=== PATIENT | female | born 1965 | race Caucasian/White ===

== ENCOUNTER 2019-11-08 07:32 | Outpatient (CLI) | payer OTHER, SELFPAY ==
--- NOTE | ~2019-11-08 | US_ITS ---
EXAMINATION: US carotid duplex BI DATE: 11/08/2019 08:41 INDICATION: Carotid stenosis. TECHNIQUE: Grayscale, color Doppler, and pulsed Doppler images of the cervical carotid arteries were obtained. The degree of vessel stenosis is placed in one of the following categories: normal, <50%, 5 0-69%, >=70% but less than near-occlusion, near-occlusion, or total occlusion. Note that percent sten osis relative to normal distal artery lumen diameter is indirectly measured from velocity measurement s as described by Hunter, et al. Radiology 2003; 229:340-346. COMPARISON: Ultrasound 07/22/2016 FINDINGS: RIGHT: The right common carotid artery (CCA) peak systolic velocity (PSV) is 64 cm/s. The right internal car otid artery (ICA) PSV is 91 cm/s. The right ICA end-diastolic velocity (EDV) is 27 cm/s. The right IC A/CCA PSV ratio is 1.4. Grayscale and color Doppler images yield an estimate of <50% diameter reducti on from plaque in the ICA. There is antegrade flow in the right vertebral artery. LEFT: The left CCA PSV is 71 cm/s. The left ICA PSV is 116 cm/s. The left ICA EDV is 37 cm/s. The left ICA/ CCA PSV ratio is 1.6. Grayscale and color Doppler images yield an estimate of <50% diameter reduction from plaque in the ICA. There is antegrade flow in the left vertebral artery. IMPRESSION: 1. <50% stenosis in the right internal carotid artery. 2. <50% stenosis in the left internal carotid artery. Reviewed, dictated and finalized at location A.
[2019-11-08 07:43] LABS: Basophils Absolute Auto 0.05 K/mm3 (0.00-0.10); Basophils Percent Auto 0.7 % (0.0-1.0); Eosinophils Absolute Auto 0.17 K/mm3 (0.02-0.50); Eosinophils Percent Auto 2.3 % (1.0-6.0); Hematocrit 41.9 % (35.0-49.0); Hemoglobin 13.9 g/dL (12.0-15.0); Immature Granulocyte Absolute 0.03 K/mm3 (0.00-0.00); Immature Granulocyte Percent A 0.4 % (0.0-0.0); Lymphocytes Percent Auto 47.8 % (18.0-42.0); Mean Corpuscular HGB Conc 33.2 g/dL (32.0-36.0); Mean Corpuscular Hemoglobin 30.6 pg (27.0-31.0); Mean Corpuscular Volume 92.3 fL (78.0-102.0); Mean Platelet Volume 9.6 fl (9.2-11.8); Monocytes Percent Auto 6.6 % (2.0-11.0); Neutrophils Absolute Auto 3.2 K/mm3 (1.7-7.2); Neutrophils Percent Auto 42.2 % (50.0-70.0); Platelet Count Result 197 K/mm3 (150-420); Red Blood Count 4.54 M/mm3 (4.20-5.40); Red Cell Distribution Width 13.8 % (11.6-14.4); White Blood Count 7.5 K/mm3 (4.8-10.8)
[2019-11-08 07:50] LABS: Add Urine Microscopic? YES; Appearance Urine Clear (Clear); Bilirubin Urine Negative (Negative); Blood Urine Negative (Negative); Color Urine Yellow (Yellow); Glucose Urine UA Negative (Negative); Ketones Urine Negative (Negative); Leukocyte Esterase Ur Trace LEU/UL (Negative); Nitrate Urine Negative (Negative); Protein Urine Negative (Negative); Urobilinogen Urine 0.2 mg/dL (0.2-1.0)
[2019-11-08 07:59] LABS: Hemoglobin A1C 5.6 % (<5.7)
[2019-11-08 08:01] LABS: Creatinine Urine 109.17 mg/dL (40-278); MALB Creatinine Ratio 3.3 mg/g (0-30); Microalbumin Urine Random 3.7 mg/L
[2019-11-08 08:09] LABS: Bacteria Urine 2+ /hpf; Mucus Urine Few /lpf; RBC Urine 0-2 /hpf (0-2); Squamous Epithelial Cell Urine Few /hpf (Few)
[2019-11-08 08:53] LABS: Alanine Aminotransferase 37 U/L (14-59); Albumin Level 3.6 g/dL (3.4-5.0); Alkaline Phosphatase 96 U/L (46-116); Anion Gap 11.9 mmol/L (7-16); Aspartate Amino Transferase 20 U/L (15-37); Bilirubin,Total 0.3 mg/dL (0.00-1.00); Blood Urea Nitrogen 10 mg/dL (7-18); Calcium 8.8 mg/dL (8.5-10.1); Carbon Dioxide 28 mmol/L (21-32); Chloride 105 mmol/L (98-108); Cholesterol 155 mg/dL (0-200); Creatine Kinase 70 U/L (26-192); Estimated Glomerular Filt Rate > 60; Glucose 104 mg/dL (70-99); HDL Direct 31 mg/dL (40-60); LDL Cholesterol Calculated 79 mg/dL (<130); Osmolality Calculated 291 mOsm/kg (285-295); Potassium 3.9 mmol/L (3.5-5.1); Sodium 141 mmol/L (136-145); Total Protein 6.9 g/dL (6.4-8.2); Triglycerides 227 mg/dL (0-150)
== END 2019-11-08 07:33 | disposition home or self-care (01) ==
PROVIDERS: PCP Internal Medicine; Visit Provider Internal Medicine
DX: I65.29 Occlusion and stenosis of unspecified carotid artery (principal); E78.2 Mixed hyperlipidemia; R73.01 Impaired fasting glucose
CPT/HCPCS: 36415; 80053; 80061; 81001; 82043; 82550; 83036; 85025; 93880

== ENCOUNTER 2020-05-01 12:30 | Outpatient (CLI) | payer OTHER, SELFPAY ==
--- NOTE | ~2020-05-01 | XR_ITS ---
EXAMINATION: XR chest 2V DATE: 05/01/2020 13:19 INDICATION: Cough and fever. TECHNIQUE: Frontal and lateral views of the chest were obtained. COMPARISON: Chest 2 views 01/13/2016, chest CT 11/21/2018 FINDINGS: There are lucencies in the upper lungs, consistent with emphysema. No pleural effusion or p neumothorax. The heart size is normal. IMPRESSION: 1. Emphysema. Reviewed, dictated and finalized at location B. AL SITTER IMPRESSION: 1. Emphysema.
[2020-05-01 13:12] LABS: Basophils Absolute Auto 0.06 K/mm3 (0.00-0.10); Basophils Percent Auto 0.6 % (0.0-1.0); Eosinophils Absolute Auto 0.14 K/mm3 (0.02-0.50); Eosinophils Percent Auto 1.5 % (1.0-6.0); Hematocrit 43.7 % (35.0-49.0); Immature Granulocyte Absolute 0.04 K/mm3 (0.00-0.00); Immature Granulocyte Percent A 0.4 % (0.0-0.0); Lymphocytes Absolute Auto 2.69 K/mm3 (1.10-4.50); Lymphocytes Percent Auto 28.7 % (18.0-42.0); Mean Corpuscular Hemoglobin 29.9 pg (27.0-31.0); Mean Corpuscular Volume 93.2 fL (78.0-102.0); Mean Platelet Volume 9.5 fl (9.2-11.8); Monocytes Absolute Auto 0.66 K/mm3 (0.10-0.90); Neutrophils Absolute Auto 5.8 K/mm3 (1.7-7.2); Neutrophils Percent Auto 61.8 % (50.0-70.0); Platelet Count Result 213 K/mm3 (150-420); Red Blood Count 4.69 M/mm3 (4.20-5.40); Red Cell Distribution Width 13.3 % (11.6-14.4); White Blood Count 9.4 K/mm3 (4.8-10.8)
[2020-05-01 13:30] LABS: Influenza Control Valid (Valid)
[2020-05-01 13:31] LABS: SARS-CoV-2 Ag Negative (Negative)
== END 2020-05-01 12:31 | disposition home or self-care (01) ==
PROVIDERS: PCP Internal Medicine; Visit Provider Internal Medicine
DX: R05 Cough (principal); R50.9 Fever, unspecified; Z20.828 Contact with and (suspected) exposure to other viral communicable diseases
CPT/HCPCS: 71046; 85025; 87426; 87804

== ENCOUNTER 2021-02-05 16:55 | Outpatient (CLI) | payer OTHER, SELFPAY ==
[2021-02-05 18:15] LABS: SARS-CoV-2 RNA PCR Negative (Negative)
== END 2021-02-05 16:56 | disposition home or self-care (01) ==
PROVIDERS: PCP Internal Medicine; Visit Provider Internal Medicine
DX: Z20.822 Contact with and (suspected) exposure to COVID-19 (principal)
CPT/HCPCS: C9803; U0003; U0005

== ENCOUNTER 2021-03-31 11:35 | Outpatient (CLI) | payer OTHER, SELFPAY ==
[2021-03-31 11:48] LABS: Basophils Absolute Auto 0.04 K/mm3 (0.00-0.10); Basophils Percent Auto 0.5 % (0.0-1.0); Eosinophils Absolute Auto 0.16 K/mm3 (0.02-0.50); Hematocrit 42.8 % (35.0-49.0); Hemoglobin 14.2 g/dL (12.0-15.0); Immature Granulocyte Absolute 0.02 K/mm3 (0.00-0.00); Immature Granulocyte Percent A 0.2 % (0.0-0.0); Lymphocytes Absolute Auto 3.37 K/mm3 (1.10-4.50); Mean Corpuscular HGB Conc 33.2 g/dL (32.0-36.0); Mean Corpuscular Hemoglobin 30.5 pg (27.0-31.0); Mean Corpuscular Volume 91.8 fL (78.0-102.0); Mean Platelet Volume 9.8 fl (9.2-11.8); Monocytes Absolute Auto 0.52 K/mm3 (0.10-0.90); Monocytes Percent Auto 6.5 % (2.0-11.0); Neutrophils Absolute Auto 3.9 K/mm3 (1.7-7.2); Neutrophils Percent Auto 48.8 % (50.0-70.0); Platelet Count Result 238 K/mm3 (150-420); Red Blood Count 4.66 M/mm3 (4.20-5.40); Red Cell Distribution Width 14.1 % (11.6-14.4)
[2021-03-31 11:54] LABS: Add Urine Microscopic? NO; Appearance Urine Clear (Clear); Bilirubin Urine Negative (Negative); Blood Urine Negative (Negative); Color Urine Light Yellow (Yellow); Glucose Urine UA Negative (Negative); Ketones Urine Negative (Negative); Leukocyte Esterase Ur Negative (Negative); Nitrate Urine Negative (Negative); Protein Urine Negative (Negative); Specific Grav Ur 1.025 (1.010-1.020); Urobilinogen Urine 0.2 mg/dL (0.2-1.0)
[2021-03-31 12:05] LABS: Creatinine Urine 171.06 mg/dL (40-278); MALB Creatinine Ratio 7.5 mg/g (0-30); Microalbumin Urine Random < 13.0 mg/L
[2021-03-31 12:07] LABS: Hemoglobin A1C 5.5 % (<5.7)
[2021-03-31 12:57] LABS: Alanine Aminotransferase 29 U/L (14-59); Albumin Level 3.8 g/dL (3.4-5.0); Alkaline Phosphatase 106 U/L (46-116); Anion Gap 9 mmol/L (8-16); Aspartate Amino Transferase 13 U/L (15-37); Bilirubin,Total 0.4 mg/dL (0.00-1.00); Blood Urea Nitrogen 7 mg/dL (7-18); Calcium 9.2 mg/dL (8.5-10.1); Carbon Dioxide 27 mmol/L (21-32); Chloride 107 mmol/L (98-108); Cholesterol 152 mg/dL (0-200); Creatine Kinase 63 U/L (26-192); Estimated Glomerular Filt Rate > 60; Glucose 88 mg/dL (70-99); HDL Direct 30 mg/dL (40-60); LDL Cholesterol Calculated 86 mg/dL (<130); Osmolality Calculated 293 mOsm/kg (285-295); Potassium 3.9 mmol/L (3.5-5.1); Sodium 143 mmol/L (136-145); Total Protein 7.1 g/dL (6.4-8.2); Triglycerides 179 mg/dL (0-150)
== END 2021-03-31 11:36 | disposition home or self-care (01) ==
LOC: CHSLAB 11:37
PROVIDERS: PCP Internal Medicine; Visit Provider Internal Medicine
DX: E78.5 Hyperlipidemia, unspecified (principal); R73.01 Impaired fasting glucose; D72.820 Lymphocytosis (symptomatic)
CPT/HCPCS: 36415; 80053; 80061; 81003; 82043; 82550; 83036; 85025

== ENCOUNTER 2021-05-08 10:19 | Outpatient (CLI) | payer OTHER, SELFPAY ==
[2021-05-08 11:26] LABS: Influenza A QL RT-PCR Negative (Negative); Influenza B QL RT-PCR Negative (Negative); SARS-CoV-2 RNA PCR Positive (Negative)
== END 2021-05-08 10:20 | disposition home or self-care (01) ==
LOC: CHSLAB 10:22
PROVIDERS: PCP Internal Medicine; Visit Provider Internal Medicine
DX: U07.1 COVID-19 (principal); J06.9 Acute upper respiratory infection, unspecified
CPT/HCPCS: 87502; C9803; U0003; U0005

== ENCOUNTER 2021-05-09 12:33 | Outpatient (CLI) | payer OTHER, SELFPAY ==
--- NOTE | 2021-05-09 12:45 | PC.NURSE ---
Here for covid infusion, denies needs, warm blanket given, to room 201
[2021-05-09 12:50] VITALS: BP 145/65; PULSE 85; RESP 18; TEMP 37.3; O2SAT 94
[2021-05-09] MEDS: diphenhydrAMINE HCl CAP 25 MG CAPSULE PO (12:51)
[2021-05-09] MEDS: ACETAMINOPHEN 325 MG TABLET 650 MG PO (12:51)
[2021-05-09] MEDS: FAMOTIDINE 20 MG TABLET PO (12:51)
--- NOTE | 2021-05-09 14:03 | PC.NURSE ---
tolerated infusion well, slight nausea noted, no emesis
[2021-05-09 14:08] VITALS: BP 122/61; PULSE 75; RESP 18; TEMP 37.3; O2SAT 92
--- NOTE | 2021-05-09 14:21 | PC.NURSE ---
discharge via wheel chair to home, denies needs, saline lock removed with cathlon itact
== END 2021-05-09 12:34 | disposition home or self-care (01) ==
PROVIDERS: PCP Internal Medicine; Visit Provider Internal Medicine
DX: U07.1 COVID-19 (principal)
CPT/HCPCS: 96365; A9270; M0245; Q0245

== ENCOUNTER 2021-05-30 10:47 | Outpatient (CLI) | payer OTHER, SELFPAY ==
[2021-05-30 12:17] LABS: Influenza Control Valid (Valid)
[2021-05-30 12:18] LABS: SARS-CoV-2 Ag Negative (Negative)
== END 2021-05-30 10:48 | disposition home or self-care (01) ==
LOC: CHSLAB 10:49
PROVIDERS: PCP Internal Medicine; Visit Provider Internal Medicine
DX: J06.9 Acute upper respiratory infection, unspecified (principal); Z20.822 Contact with and (suspected) exposure to COVID-19
CPT/HCPCS: 87081; 87426; 87804; 87880; C9803

== ENCOUNTER 2021-11-19 09:39 | Outpatient (CLI) | payer OTHER, SELFPAY ==
[2021-11-19 09:58] LABS: Basophils Absolute Auto 0.06 K/mm3 (0.00-0.10); Basophils Percent Auto 0.7 % (0.0-1.0); Eosinophils Absolute Auto 0.15 K/mm3 (0.02-0.50); Eosinophils Percent Auto 1.7 % (1.0-6.0); Hematocrit 41.3 % (35.0-49.0); Hemoglobin 13.5 g/dL (12.0-15.0); Immature Granulocyte Absolute 0.03 K/mm3 (0.00-0.00); Immature Granulocyte Percent A 0.3 % (0.0-0.0); Lymphocytes Absolute Auto 3.09 K/mm3 (1.10-4.50); Lymphocytes Percent Auto 34.3 % (18.0-42.0); Mean Corpuscular HGB Conc 32.7 g/dL (32.0-36.0); Mean Corpuscular Hemoglobin 29.9 pg (27.0-31.0); Mean Corpuscular Volume 91.6 fL (78.0-102.0); Mean Platelet Volume 9.7 fl (9.2-11.8); Monocytes Absolute Auto 0.56 K/mm3 (0.10-0.90); Monocytes Percent Auto 6.2 % (2.0-11.0); Neutrophils Absolute Auto 5.1 K/mm3 (1.7-7.2); Neutrophils Percent Auto 56.8 % (50.0-70.0); Platelet Count Result 208 K/mm3 (150-420); Red Blood Count 4.51 M/mm3 (4.20-5.40); Red Cell Distribution Width 14.1 % (11.6-14.4)
[2021-11-19 10:02] LABS: Add Urine Microscopic? NO; Appearance Urine Clear (Clear); Bilirubin Urine Negative (Negative); Blood Urine Negative (Negative); Color Urine Yellow (Yellow); Glucose Urine UA Negative (Negative); Ketones Urine Negative (Negative); Leukocyte Esterase Ur Negative LEU/UL (Negative); Nitrate Urine Negative (Negative); Protein Urine Negative (Negative); Specific Grav Ur 1.025 (1.010-1.020); Urobilinogen Urine 0.2 mg/dL (0.2-1.0)
[2021-11-19 10:08] LABS: Creatinine Urine 129.23 mg/dL (40-278); Microalbumin Urine Random < 13.0 mg/L
[2021-11-19 10:10] LABS: Hemoglobin A1C 5.6 % (<5.7)
[2021-11-19 10:42] LABS: Alanine Aminotransferase 22 U/L (14-59); Albumin Level 3.6 g/dL (3.4-5.0); Alkaline Phosphatase 123 U/L (46-116); Anion Gap 8 mmol/L (8-16); Aspartate Amino Transferase 15 U/L (15-37); Bilirubin,Total 0.2 mg/dL (0.00-1.00); Blood Urea Nitrogen 13 mg/dL (7-18); Calcium 8.9 mg/dL (8.5-10.1); Carbon Dioxide 26 mmol/L (21-32); Chloride 107 mmol/L (98-108); Cholesterol 142 mg/dL (0-200); Creatine Kinase 57 U/L (26-192); Estimated Glomerular Filt Rate > 60; Glucose 98 mg/dL (70-99); HDL Direct 35 mg/dL (40-60); LDL Cholesterol Calculated 62 mg/dL (<130); Osmolality Calculated 292 mOsm/kg (285-295); Potassium 3.9 mmol/L (3.5-5.1); Sodium 141 mmol/L (136-145); Total Protein 7.4 g/dL (6.4-8.2); Triglycerides 227 mg/dL (0-150)
== END 2021-11-19 09:40 | disposition home or self-care (01) ==
LOC: CHSLAB 09:41
PROVIDERS: PCP Internal Medicine; Visit Provider Internal Medicine
DX: E78.5 Hyperlipidemia, unspecified (principal); R73.01 Impaired fasting glucose; I10 Essential (primary) hypertension
CPT/HCPCS: 36415; 80053; 80061; 81003; 82043; 82550; 83036; 85025

== ENCOUNTER 2021-12-15 07:19 | Outpatient (CLI) | payer OTHER, SELFPAY ==
--- NOTE | ~2021-12-15 | CT_ITS ---
EXAMINATION: CT lung screening DATE: 12/15/2021 07:42 INDICATION: History of tobacco dependence TECHNIQUE: Computed tomography (CT) of the chest was performed without intravenous contrast. The dose -length product was 103.96 mGy-cm. Automated exposure control and iterative reconstruction technique were employed. COMPARISON: CT dated 11/21/2018 FINDINGS: Heart size is normal. No significant pleural or pericardial effusion. There is emphysema. M ild mediastinal lymph node enlargement, likely reactive. There is atherosclerosis. Stable right lower lobe nodule measuring 11 x 8 mm compared with 11 x 9 mm on prior examination. There is adjacent grou ndglass opacification and endobronchial thickening. There are small 2-3 mm nodules in the upper lobes without significant change. There is a subsolid 5 mm left perifissural nodule, image 85, likely yuval gn. No pneumothorax. No endobronchial lesions. IMPRESSION: 1. Lung-RADS category 3: Probably benign. Further evaluation is recommended with noncontrast low-dose chest CT in 6 months. Reviewed, dictated and finalized at location A. IMPRESSION: 1. Lung-RADS category 3: Probably benign. Further evaluation is recommended wit h noncontrast low-dose chest CT in 6 months.
== END 2021-12-15 07:20 | disposition home or self-care (01) ==
LOC: CHSIMG 07:20
PROVIDERS: PCP Internal Medicine; Visit Provider Internal Medicine
DX: Z12.2 Encounter for screening for malignant neoplasm of respiratory organs (principal); Z87.891 Personal history of nicotine dependence
CPT/HCPCS: 71271

== ENCOUNTER 2022-04-14 18:37 | Emergency (ER) | payer OTHER, SELFPAY ==
[2022-04-14] VITALS (10 sets, daily range): BP systolic 114–126; BP diastolic 55–73; PULSE 64–87; RESP 13–21; TEMP 36.6–36.7; O2SAT 94–99
--- NOTE | ~2022-04-14 | XR_ITS ---
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 RESULT: Lines, tubes, and devices: None. Lungs and pleura: Clear. Cardiomediastinal silhouette: Stable. Other: No acute osseous or upper abdominal finding. IMPRESSION: No acute cardiopulmonary process. Reviewed, dictated and finalized at location K. ICAL LABORATORY SERVICE TEACHER
--- NOTE | 2022-04-14 19:03 | ECG_ITS ---
Measurements Intervals [place] Rate: 67 P: 57 UT: 164 QRS: 29 QRSD: 86 T: 56 QT: 391 QTc: 414 Interpretive Statements SINUS RHYTHM BASELINE ARTIFACT- V3-V4 NORMAL ECG NO PREVIOUS ECG AVAILABLE FOR COMPARISON Electronically Signed On 04-15-2022 9:12:57 RECONDITIONER by Fritz Mart D.O.
--- NOTE | 2022-04-14 19:04 | ED.CHESTPAIN ---
HPI - Chest Pain General Chief Complaint: Chest Pain Stated Complaint: trouble breathing, chest pain, fever Time Seen by Provider: 04/14/22 18:58 History of Present Illness HPI narrative: Pt presents with chest pain times tow over the last two days. Pt states she had an episode today that lasted 5 minutes and radiated into her right jaw. Pt used nitro x2 and it resolved. Pt has no pain now. Pt has hx of CAD with stents, smoker. Pt is treated by [facility] at [facility] in [place]. Related Data Allergies Allergy/AdvReac Type Severity Reaction Status Date / Time No Known Drug Allergies Allergy Mild Other Verified 04/14/22 19:34 Review of Systems Review of Systems: All systems reviewed & are unremarkable except as noted in HPI and below Exam Const: General: no acute distress Nutritional Appearance: well nourished Orientation/consciousness: patient oriented x3 Limitations: no limitations Eyes: EOM: EOMs intact bilaterally Neck: Neck: normal visual inspection and no lymphadenopathy Chest: Chest palpation & inspection: normal inspection of the chest Resp: Effort & Inspection: normal respiratory effort Auscultation: clear to auscultation bilaterally Cardio: Rate: regular rate Rhythm: regular rhythm GI: GI Palp: Yes Soft to palpation Auscultation: normal bowel sounds Skin: General skin exam: normal color Rashes: no rashes Wounds: no wounds Neuro: General: patient oriented x3, moves all extremities, no meningeal signs, no focal motor deficits and CN's II-XI intact bilaterally Speech: normal speech Extrem: General: normal to inspection, no clubbing, cyanosis or edema and no pedal edema Psych: Mental Status: mental status grossly normal Affect: normal affect Attitude: cooperative Course Course Emergency Course: d/w dr basurto at [facility] will accept pt. asked to give lovenox 1mg/kg, will call when bed opens up. Vital Signs Vital signs: Vital Signs Temperature 98.0 F 04/14/22 18:50 Pulse Rate 68 04/14/22 18:50 Respiratory Rate 20 04/14/22 18:50 Blood Pressure 116/72 04/14/22 18:50 Pulse Oximetry 97 04/14/22 18:50 Oxygen Delivery Room Air 04/14/22 18:50 Temperature 98 F 04/14/22 19:05 Pulse Rate 68 04/14/22 19:05 Respiratory Rate 20 04/14/22 19:05 Blood Pressure 116/72 04/14/22 19:05 Pulse Oximetry 97 04/14/22 19:05 Oxygen Delivery Room Air 04/14/22 19:05 MDM - Chest Pain Lab Data Result diagrams: 04/14/22 19:15 04/14/22 19:15 Labs: Lab Results 04/14/22 04/14/22 04/14/22 Range/Units 19:15 19:15 19:15 WBC 7.6 (4.8-10.8) K/mm3 RBC 4.54 (4.20-5.40) M/mm3 Hgb 13.7 (12.0-15.0) g/dL Hct 41.8 (35.0-49.0) % MCV 92.1 (78.0-102.0) fL MCH 30.2 (27.0-31.0) pg MCHC 32.8 (32.0-36.0) g/dL RDW 14.2 (11.6-14.4) % Plt Count 208 (150-420) K/mm3 MPV 9.9 (9.2-11.8) fl Immature Gran % (Auto) 0.3 H (0.0-0.0) % Neut % (Auto) 37.2 L (50.0-70.0) % Lymph % (Auto) 53.7 H (18.0-42.0) % Marin % (Auto) 6.3 (2.0-11.0) % Eos % (Auto) 1.7 (1.0-6.0) % Baso % (Auto) 0.8 (0.0-1.0) % Lymph # (Auto) 4.09 (1.10-4.50) K/mm3 Marin # (Auto) 0.48 (0.10-0.90) K/mm3 Eos # (Auto) 0.13 (0.02-0.50) K/mm3 Baso # (Auto) 0.06 (0.00-0.10) K/mm3 Abs Immat Gran (auto) 0.02 H (0.00-0.00) K/mm3 Absolute Neuts (auto) 2.8 (1.7-7.2) K/mm3 Absolute Nucleated RBC 0.00 (0.00-0.00) K/mm3 Nucleated RBC % 0.0 (0-0.0) % PT 10.4 (9.50-12.10) Seconds INR 0.9 APTT 28.7 (23.90-30.70) SEC Sodium 143 (136-145) mmol/L Potassium 3.9 (3.5-5.1) mmol/L Chloride 107 (98-108) mmol/L Carbon Dioxide 27 (21-32) mmol/L Anion Gap 9 (8-16) mmol/L BUN 6 L (7-18) mg/dL Creatinine 0.66 (0.55-1.02) mg/dL Estim Creat Clear Calc 85 ml/min Estimated GFR > 60 (59 - ) Glucose 97 (70-99) mg/dL Calculated Osmolalit
--- NOTE | 2022-04-14 19:15 | PC.NURSE ---
Reported current pt chest pain level is 0. ERP states he still wants the 1 of Nitro paste but hold any other orders at this time. RN confirms and applies only 1 nitro paste.
[2022-04-14] MEDS: ASPIRIN 81 MG CHEWABLE TABLET 324 MG PO (19:18)
[2022-04-14 19:19] LABS: Basophils Absolute Auto 0.06 K/mm3 (0.00-0.10); Basophils Percent Auto 0.8 % (0.0-1.0); Eosinophils Absolute Auto 0.13 K/mm3 (0.02-0.50); Eosinophils Percent Auto 1.7 % (1.0-6.0); Hematocrit 41.8 % (35.0-49.0); Hemoglobin 13.7 g/dL (12.0-15.0); Immature Granulocyte Absolute 0.02 K/mm3 (0.00-0.00); Immature Granulocyte Percent A 0.3 % (0.0-0.0); Lymphocytes Absolute Auto 4.09 K/mm3 (1.10-4.50); Lymphocytes Percent Auto 53.7 % (18.0-42.0); Mean Corpuscular HGB Conc 32.8 g/dL (32.0-36.0); Mean Corpuscular Hemoglobin 30.2 pg (27.0-31.0); Mean Corpuscular Volume 92.1 fL (78.0-102.0); Mean Platelet Volume 9.9 fl (9.2-11.8); Monocytes Absolute Auto 0.48 K/mm3 (0.10-0.90); Monocytes Percent Auto 6.3 % (2.0-11.0); Neutrophils Absolute Auto 2.8 K/mm3 (1.7-7.2); Neutrophils Percent Auto 37.2 % (50.0-70.0); Platelet Count Result 208 K/mm3 (150-420); Red Blood Count 4.54 M/mm3 (4.20-5.40); Red Cell Distribution Width 14.2 % (11.6-14.4); White Blood Count 7.6 K/mm3 (4.8-10.8)
[2022-04-14] MEDS: NITROGLYCERIN OINTMENT 1 INCH DOSE TRANSDERM (19:19)
[2022-04-14 19:33] LABS: INR 0.9; Partial Thromboplastin Time 28.7 SEC (23.90-30.70); Prothrombin Time 10.4 Seconds (9.50-12.10)
[2022-04-14 19:40] LABS: Alanine Aminotransferase 20 U/L (14-59); Albumin Level 3.6 g/dL (3.4-5.0); Alkaline Phosphatase 99 U/L (46-116); Anion Gap 9 mmol/L (8-16); Aspartate Amino Transferase 12 U/L (15-37); Bilirubin,Total 0.3 mg/dL (0.00-1.00); Blood Urea Nitrogen 6 mg/dL (7-18); Calcium 8.7 mg/dL (8.5-10.1); Carbon Dioxide 27 mmol/L (21-32); Chloride 107 mmol/L (98-108); Estimated CRCL calculation 85 ml/min; Estimated Glomerular Filt Rate > 60; Glucose 97 mg/dL (70-99); NT Pro B Type Natriuretic Pept 90 pg/mL (0-125); Osmolality Calculated 293 mOsm/kg (285-295); Potassium 3.9 mmol/L (3.5-5.1); Sodium 143 mmol/L (136-145); Total Protein 7.5 g/dL (6.4-8.2)
[2022-04-14 19:42] LABS: Troponin I < 4.0 ng/L (0.00-60.4)
[2022-04-14 19:57] LABS: Influenza A QL RT-PCR Negative (Negative); Influenza B QL RT-PCR Negative (Negative); SARS-CoV-2 RNA PCR Negative (Negative)
[2022-04-14 19:59] LABS: RSV RNA, RT-PCR Negative (Negative)
--- NOTE | 2022-04-14 20:01 | PC.NURSE ---
RN calls [facility] connect to start a consult and possible transfer. [facility] connect has taken the information and will return a call.
[2022-04-14] MEDS: ENOXAPARIN 100 MG/ML SYRINGE 85 MG SUB-Q (21:42)
[2022-04-14 22:26] LABS: Troponin I < 4.0 ng/L (0.00-60.4)
--- NOTE | 2022-04-14 22:26 | PC.NURSE ---
ERP orders for a 21mh transdermal nicotine patch to applied STAT. ERP is aware the only order is for QAM and states that he does want it applied STAT. RN confirms order.
[2022-04-14] MEDS: NICOTINE (*PBKC) 21 MG PATCH 1 PATCH TRANSDERM (22:28)
== END 2022-04-14 22:35 | disposition short-term general hospital (02) ==
PROVIDERS: Emergency Provider Emergency Medicine; PCP Internal Medicine
DX: I20.0 Unstable angina (principal); Z20.822 Contact with and (suspected) exposure to COVID-19
CPT/HCPCS: 36415; 71045; 80053; 83880; 84484; 85025; 85610; 85730; 87637; 93005; 96372; 99285; A9270; J1650

== ENCOUNTER 2022-12-10 10:45 | Outpatient (CLI) | payer OTHER, SELFPAY ==
[2022-12-10 11:00] LABS: Basophils Absolute Auto 0.05 K/mm3 (0.00-0.10); Basophils Percent Auto 0.7 % (0.0-1.0); Eosinophils Absolute Auto 0.15 K/mm3 (0.02-0.50); Eosinophils Percent Auto 2.1 % (1.0-6.0); Hemoglobin 13.6 g/dL (12.0-15.0); Immature Granulocyte Absolute 0.03 K/mm3 (0.00-0.00); Immature Granulocyte Percent A 0.4 % (0.0-0.0); Lymphocytes Absolute Auto 3.19 K/mm3 (1.10-4.50); Lymphocytes Percent Auto 44.9 % (18.0-42.0); Mean Corpuscular HGB Conc 33.2 g/dL (32.0-36.0); Mean Corpuscular Hemoglobin 30.4 pg (27.0-31.0); Mean Corpuscular Volume 91.5 fL (78.0-102.0); Mean Platelet Volume 9.2 fl (9.2-11.8); Monocytes Absolute Auto 0.43 K/mm3 (0.10-0.90); Monocytes Percent Auto 6.1 % (2.0-11.0); Neutrophils Absolute Auto 3.3 K/mm3 (1.7-7.2); Neutrophils Percent Auto 45.8 % (50.0-70.0); Platelet Count Result 200 K/mm3 (150-420); Red Blood Count 4.48 M/mm3 (4.20-5.40); Red Cell Distribution Width 14.2 % (11.6-14.4); White Blood Count 7.1 K/mm3 (4.8-10.8)
[2022-12-10 11:17] LABS: Hemoglobin A1C 5.8 % (<5.7)
[2022-12-10 12:21] LABS: Appearance Urine Clear (Clear); Bilirubin Urine Negative (Negative); Color Urine Light Yellow (Yellow); Glucose Urine UA Negative (Negative); Ketones Urine Negative (Negative); Leukocyte Esterase Ur Negative LEU/UL (Negative); Nitrate Urine Negative (Negative); Protein Urine Negative (Negative); Urobilinogen Urine 0.2 mg/dL (0.2-1.0); pH Urine 5.5 (5.0-8.0)
[2022-12-10 12:29] LABS: Add Urine Microscopic? NO
[2022-12-10 12:31] LABS: Alanine Aminotransferase 35 U/L (14-59); Albumin Level 3.6 g/dL (3.4-5.0); Alkaline Phosphatase 95 U/L (46-116); Anion Gap 10 mmol/L (8-16); Aspartate Amino Transferase 16 U/L (15-37); Bilirubin,Total 0.3 mg/dL (0.00-1.00); Blood Urea Nitrogen 9 mg/dL (7-18); Calcium 9.1 mg/dL (8.5-10.1); Carbon Dioxide 27 mmol/L (21-32); Chloride 106 mmol/L (98-108); Cholesterol 236 mg/dL (0-200); Creatine Kinase 42 U/L (26-192); Estimated Glomerular Filt Rate > 60; Glucose 97 mg/dL (70-99); HDL Direct 31 mg/dL (40-60); LDL Cholesterol Calculated 145 mg/dL (<130); Osmolality Calculated 294 mOsm/kg (285-295); Sodium 143 mmol/L (136-145); Total Protein 6.9 g/dL (6.4-8.2); Triglycerides 301 mg/dL (0-150)
[2022-12-10 13:14] LABS: Blood Urine Negative (Negative)
== END 2022-12-10 10:46 | disposition home or self-care (01) ==
LOC: CHSLAB 10:47
PROVIDERS: PCP Internal Medicine; Visit Provider Internal Medicine
DX: E78.2 Mixed hyperlipidemia (principal); N39.0 Urinary tract infection, site not specified; R53.82 Chronic fatigue, unspecified; R73.01 Impaired fasting glucose
CPT/HCPCS: 36415; 80053; 80061; 81003; 82550; 83036; 85025

== ENCOUNTER 2023-08-15 15:37 | Emergency (ER) | payer OTHER, SELFPAY ==
--- NOTE | ~2023-08-15 | XR_ITS ---
EXAM: XR wrist RT min 3V DATE: 08/15/2023 15:59 HISTORY: Rt. medial wrist pain x2 days . COMPARISON: None available. FINDINGS: Normal mineralization. Possible transverse lucency through the midportion of the scaphoid bone. Otherwise, no fracture or dislocation. No lytic or blastic lesion. Mild scattered degenerative change. No erosion or periosteal change. Soft tissues within normal limits. IMPRESSION: Nondisplaced transverse scaphoid fracture versus artifact from bony trabeculae, correlate for snuffbox tenderness. Reviewed, dictated and finalized at location K.
[2023-08-15 15:37] VITALS: BP 123/78; PULSE 78; RESP 16; TEMP 36.7; O2SAT 97
--- NOTE | 2023-08-15 15:45 | ED.UPPEXIN ---
HPI - Extremity Injury (Upper) General Chief Complaint: Extremity Injury, Upper Stated Complaint: right wrist pain Time Seen by Provider: 08/15/23 15:43 Source: patient Mode of arrival: ambulatory Limitations: no limitations History of Present Illness HPI narrative: Patient is a 58-year-old female with a right wrist injury 2 days ago. The pain and swelling has gotten worse over the past 2 days so she came to the ER for evaluation. She was moving a germ drier. complaint: injury to: right Onset (ago): day(s) (2) Other Extremity Injury: Right: wrist Other injuries: none Place: home Severity: moderate Severity scale (1-10): 5 Relieving factors: immobilization Exacerbating factors: movement of extremity Context: injury and other ( patient was moving dryer) Associated symptoms: denies other symptoms Related Data Home Medications Medication Instructions Recorded Confirmed albuterol sulfate 90 mcg/actuation 2 puff inhalation DIRECTED 04/14/22 04/14/22 aerosol inhaler (ProAir HFA) atorvastatin 80 mg tablet 80 mg PO DIRECTED 04/14/22 04/14/22 carvedilol 3.125 mg tablet 3.125 mg PO DIRECTED 04/14/22 04/14/22 sertraline 100 mg tablet 100 mg PO DIRECTED 04/14/22 04/14/22 ticagrelor 90 mg tablet (Brilinta) 90 mg PO DIRECTED 04/14/22 04/14/22 Allergies Allergy/AdvReac Type Severity Reaction Status Date / Time No Known Drug Allergies Allergy Mild Other Verified 04/14/22 19:34 Review of Systems Review of Systems: All systems reviewed & are unremarkable except as noted in HPI and below Constitutional: Constitutional: Reports no additional constitutional complaints Eyes: Eyes: Reports no additional eye complaints ENT: Reports system reviewed and no additional complaints, except as documented Cardiovascular: Cardiovascular: Reports no additional cardiovascular complaints Respiratory: Respiratory: Reports no additional respiratory complaints Gastrointestinal: Gastrointestinal: Reports no additional gastrointestinal complaints Genitourinary: Genitourinary: Reports no additional female genitourinary complaints Musculoskeletal: Musculoskeletal: Reports no additional musculoskeletal complaints Integumentary/Breasts: Skin/Breast: Reports system reviewed and no additional complaints, except as docu Neurologic: Reports system reviewed and no additional complaints, except as documented Psychiatric: Psychiatric: Reports no additional psychiatric complaints Endocrine: Endocrine: Reports no additional endocrine complaints Hematologic/Lymphatic: Hematologic/Lymphatic: Reports no additional hematologic/lymphatic complaints Allergic/Immunologic: Allergic/Immunologic: Reports no additional allergic/immunologic complaints Exam Const: General: healthy appearing Nutritional Appearance: well nourished Orientation/consciousness: patient oriented x3 HENMT: Head: normal to inspection Ears: external ears normal Face/Nose/Sinus: Normal external nose present Eyes: Conjunctivae: conjunctivae normal Pupils: Equal, round and reactive pupils present EOM: EOMs intact bilaterally Neck: Neck: normal visual inspection Chest: Chest palpation & inspection: normal inspection of the chest Resp: Effort & Inspection: normal respiratory effort and not labored Auscultation: clear to auscultation bilaterally Cardio: Rate: regular rate Rhythm: regular rhythm Heart sounds: no murmurs GI: Inspection: non-distended GI Palp: Yes Soft to palpation and No Tenderness to palpation present (GI) Auscultation: normal bowel sounds : General: Yes bladder normal to palpation Back/Spine/Pelvis: Back: no CVA tenderness Skin: General skin exam: normal color Rashes: no rashes Wounds: no wounds Neuro: General: patient oriented x3 Cranial nerves: Yes Nystagmus not present Speech: normal speech Extrem: General: normal to inspection Other: Tender and swollen right wrist to palpation Psych: Mental Status: mental status gross
[2023-08-15] MEDS: KETOROLAC (*BKC) 60 MG/2 ML VIAL IM (16:13)
== END 2023-08-15 16:35 | disposition home or self-care (01) ==
PROVIDERS: Emergency Provider Emergency Medicine; PCP Internal Medicine
DX: S62.101A Fracture of unspecified carpal bone, right wrist, initial encounter for closed fracture (principal); T14.90XA Injury, unspecified, initial encounter
CPT/HCPCS: 29125; 73110; 96372; 99284; J1885

== ENCOUNTER 2023-11-16 12:33 | Outpatient (CLI) | payer OTHER, SELFPAY ==
--- NOTE | ~2023-11-16 | DEXA_ITS ---
? Bone Density Report? Name:? ALEX LOREDO Patient ID:??? [id number] Age:? 58 Sex:? Female Ethnicity:? White Date of : 1965 Indication: postmenopausal; screening for osteoporosis; height loss; hysterectomy; Referring Provider: DEBRA GALVIN Study: Bone densitometry was performed. Exam Date: November 16, 2023 Accession number: [id number] Bone Density: Region? BMD??? T-score? Z-score?? Classification AP Spine(L1, L2, L3)? 0.982?? -0.3?1.0? Normal Femoral Neck (Left)? 0.721?? -1.2? 0.1? Osteopenia Total Hip (Left)? 0.974??? 0.3? 1.1?Normal Femoral Neck (Right)? 0.818?? -0.3? 0.9? Normal Total Hip (Right)? 0.978??? 0.3? 1.2? Normal Femoral Neck Mean? 0.769?? -0.7? 0.5? Normal Total Hip Mean? 0.976??? 0.3? 1.2? Normal World Health Organization criteria for BMD impression classify patients as: Normal (T-score at or above -1.0), Osteopenia (T-score between -1.0 and -2.5), or Osteoporosis (T-score at or below -2.5). 10-year Fracture Risk(1): Major Osteoporotic Fracture? 6.6% Hip Fracture? 0.7% Reported Risk Factors: [place] (), Neck BMD=0.721, BMI=30.5, smoking (1) FRAX? Version 3.08. Fracture probability calculated for an untreated patient. Fracture probability may be lower if the patient has received treatment. Clinical Information Provided by Patient: Smokes Has the following medical conditions: Hysterectomy Patient maximum height was 66 Menopause Age: 22 No regular weight bearing exercise Does not regularly consume dairy products Drinks caffeinated beverages Onset of menses at age 14 Number of children 2 Impression: The patient has low bone mass, based on the Left Femoral Neck T- score. The patient has risk factors, including: smoking. Discussion: BONE DENSITY IS LOW AT ONE OR MORE SKELETAL SITES. This patient's lowest T-score is low at one or more skeletal sites.? It meets the World Health Organization's (WHO) criteria for ?low bone mass?? (T-score between -1.0 and -2.5).? The patient's 10-year risk of fracture as calculated by FRAX is less than the threshold where pharmacological therapy is recommended by the National Osteoporosis Foundation (NOF).? However, all treatment decisions require clinical judgment and consideration of individual patient factors, including patient preferences, comorbidities, previous drug use, risk factors not captured in the FRAX model (e.g., frailty, falls, vitamin D deficiency, increased bone turnover, interval significant decline in bone density) and possible under or overestimation of fracture risk by FRAX. The patient should follow a healthful lifestyle
--- NOTE | ~2023-11-16 | MM_ITS ---
EXAMINATION: MM screening courtney BI w addison HISTORY: Screening mammogram TECHNIQUE: Craniocaudal and mediolateral oblique 3-D tomosynthesis images were obtained and synthetic 2-D images were generated. CAD analysis was submitted and interpreted. COMPARISON: 01/13/2016 BREAST PARENCHYMAL COMPOSITION:Not Dense. There are scattered areas of fibroglandular density. FINDINGS: No suspicious mass, calcification, or architectural distortion are identified in either ashley ast to suggest malignancy. There has been no suspicious interval change. IMPRESSION: No mammographic evidence of malignancy. Recommend routine screening mammography in one year. BI-RADS Category 1: Negative Reviewed, dictated and finalized at location .
--- NOTE | ~2023-11-16 | CT_ITS ---
EXAMINATION: CT lung screening DATE: 11/16/2023 13:25 INDICATION: PERSONAL HX OF NICOTINE DEPENDENCE, Current smoker TECHNIQUE: Computed tomography (CT) of the chest was performed without intravenous contrast. Addition al 3D reconstructions utilizing coronal maximum intensity projection (MIP) were performed. Automated exposure control and iterative reconstruction technique were employed. The dose-length product was 10 0.81 mGy-cm. COMPARISON: 12/15/2021 FINDINGS: Mild to moderate emphysema with scattered mild bronchial wall thickening. No interval change in a clu ster of somewhat elongated nodules extending distally and along the axis of a few bronchi in the post erior basilar segment of the right lower lobe most suspicious for mucus impacted bronchi. The largest which measures 12 x 7 mm posterior branch at its caudal extent. Again seen are multiple additional s cattered bilateral smaller less than 4 mm sized pulmonary nodules with upper lung predominance. Small linear band of discoid atelectasis at the lingula accounting for the groundglass nodular appearance on the axial imaging. Heart size is normal. Atherosclerotic coronary artery calcification. No pericar dial effusion. Thoracic aorta is normal in caliber. Normal anatomic variant retroesophageal aberrant right subclavian artery. No pathologically enlarged thoracic lymphadenopathy. Moderate thoracolumbar spondylosis. IMPRESSION: 1. Lung-RADS category 2: Benign appearance or behavior. Continue annual screening with noncontrast lo w-dose chest CT in 12 months. Reviewed, dictated and finalized at location B. IMPRESSION: 1. Lung-RADS category 2: Benign appearance or behavior. Continue annual screeni ng with noncontrast low-dose chest CT in 12 months.
--- NOTE | ~2023-11-16 | US_ITS ---
EXAMINATION: US arterial ankle brachial ind DATE: 11/16/2023 13:19 INDICATION: Peripheral arterial occlusive disease at the lower limbs. TECHNIQUE: Segmental pressures and plethysmographic and Doppler waveforms of the brachial and lower e xtremity arteries were obtained. COMPARISON: None. FINDINGS: Right and left brachial artery pressures of 118 mm Hg and 120 mm Hg, respectively, are concordant (no rmal difference <= 30 mmHg). The right ankle-brachial index (JACKELIN) is 0.91 (normal >= 0.9-1.0). The right great toe-brachial index (TBI) is 0.78 (normal >= 0.65). Arterial Doppler waveforms are biphasic with brisk systolic upstrokes at both right posterior tibial and dorsalis pedis arteries. The left JACKELIN is 0.93. The left TBI is 0.86. Arterial Doppler waveforms are biphasic at the left dorsa lis pedis artery and triphasic at the left posterior tibial artery both with brisk systolic upstrokes . IMPRESSION: 1. No significant arterial occlusive disease with normal bilateral ABIs and TBIs. Reviewed, dictated and finalized at location B. IMPRESSION: 1. No significant arterial occlusive disease with normal bilateral ABIs and TBI s.
--- NOTE | ~2023-11-16 | US_ITS ---
EXAMINATION: US carotid duplex BI DATE: 11/16/2023 13:22 INDICATION: Carotid stenosis TECHNIQUE: Grayscale, color Doppler, and pulsed Doppler images of the cervical carotid arteries were obtained. The degree of vessel stenosis is placed in one of the following categories: normal, <50%, 5 0-69%, >=70% but less than near-occlusion, near-occlusion, or total occlusion. Note that percent sten osis relative to normal distal artery lumen diameter is indirectly measured from velocity measurement s as described by Hunter, et al. Radiology 2003; 229:340-346. COMPARISON: 11/08/2019 FINDINGS: RIGHT: The right common carotid artery (CCA) peak systolic velocity (PSV) is 83 cm/s. The right internal car otid artery (ICA) PSV is 77 cm/s. The right ICA end-diastolic velocity (EDV) is 29 cm/s. The right IC A/CCA PSV ratio is 0.9. Grayscale and color Doppler images yield an estimate of <50% diameter reducti on from plaque in the ICA. The external carotid artery (ECA) PSV is 84 cm/s. There is antegrade flow in the right vertebral artery. LEFT: The left CCA PSV is 80 cm/s. The left ICA PSV is 110 cm/s. The left ICA EDV is 39 cm/s. The left ICA/ CCA PSV ratio is 1.4. Grayscale and color Doppler images yield an estimate of <50% diameter reduction from plaque in the ICA. The ECA PSV is 102 cm/s. There is antegrade flow in the left vertebral arter y. IMPRESSION: 1. <50% stenosis in the right internal carotid artery. 2. <50% stenosis in the left internal carotid artery. Reviewed, dictated and finalized at location B.
== END 2023-11-16 12:34 | disposition home or self-care (01) ==
PROVIDERS: PCP Internal Medicine; Visit Provider Internal Medicine
DX: M81.0 Age-related osteoporosis without current pathological fracture (principal); I73.9 Peripheral vascular disease, unspecified; Z12.31 Encounter for screening mammogram for malignant neoplasm of breast; Z12.2 Encounter for screening for malignant neoplasm of respiratory organs; I65.23 Occlusion and stenosis of bilateral carotid arteries; Z87.891 Personal history of nicotine dependence; M85.88 Other specified disorders of bone density and structure, other site
CPT/HCPCS: 71271; 77063; 77067; 77080; 93880; 93922

== ENCOUNTER 2024-09-11 10:33 | Outpatient (CLI) | payer OTHER, SELFPAY ==
--- NOTE | ~2024-09-11 | XR_ITS ---
XR chest 2V Ordering provider: Michael Lyle MD History: 59 years Female with . COPD exacerbation,CONGESTION,COUGH,SOB . Comparison: April 14, 2022 FINDINGS: MEDIASTINUM: The cardiac silhouette is not enlarged. LUNGS: No infiltrates, effusions or pneumothorax. OTHER: No free air under the diaphragm. IMPRESSION: No acute cardiopulmonary pathology. Reviewed, dictated and finalized at location A.
[2024-09-11 10:48] LABS: Basophils Absolute Auto 0.06 K/mm3 (0.00-0.10); Basophils Percent Auto 0.6 % (0.0-1.0); Eosinophils Absolute Auto 0.13 K/mm3 (0.02-0.50); Eosinophils Percent Auto 1.3 % (1.0-6.0); Hematocrit 42.7 % (35.0-49.0); Hemoglobin 13.6 g/dL (12.0-15.0); Immature Granulocyte Absolute 0.05 K/mm3 (0.00-0.00); Immature Granulocyte Percent A 0.5 % (0.0-0.0); Lymphocytes Absolute Auto 3.03 K/mm3 (1.10-4.50); Lymphocytes Percent Auto 30.6 % (18.0-42.0); Mean Corpuscular HGB Conc 31.9 g/dL (32-36); Mean Corpuscular Hemoglobin 29.6 pg (27.0-31.0); Mean Corpuscular Volume 92.8 fL (78.0-102.0); Mean Platelet Volume 9.5 fl (9.2-11.8); Monocytes Absolute Auto 0.65 K/mm3 (0.10-0.90); Monocytes Percent Auto 6.6 % (2.0-11.0); Neutrophils Absolute Auto 5.99 K/mm3 (1.70-7.20); Neutrophils Percent Auto 60.4 % (50.0-70.0); Platelet Count Result 249 K/mm3 (150-420); Red Cell Distribution Width 13.8 % (11.6-14.4); White Blood Count 9.9 K/mm3 (4.8-10.8)
[2024-09-11 11:02] LABS: Alanine Aminotransferase 18 U/L (14-59); Albumin Level 3.3 g/dL (3.4-5.0); Alkaline Phosphatase 131 U/L (46-116); Anion Gap 8 mmol/L (4-12); Aspartate Amino Transferase < 10 U/L (15-37); Bilirubin,Total 0.4 mg/dL (0.00-1.00); Blood Urea Nitrogen 6 mg/dL (7-18); Calcium 9.4 mg/dL (8.5-10.1); Carbon Dioxide 30 mmol/L (21-32); Chloride 106 mmol/L (98-108); Estimated Glomerular Filt Rate > 60; Glucose 134 mg/dL (70-99); Osmolality Calculated 297 mOsm/kg (285-295); Potassium 4.1 mmol/L (3.5-5.1); Sodium 144 mmol/L (136-145); Total Protein 7.6 g/dL (6.4-8.2)
[2024-09-11 11:13] LABS: Strep Group A RT-PCR NOT DETECTED (Negative)
[2024-09-11 11:23] LABS: Influenza A QL RT-PCR Negative (Negative); Influenza B QL RT-PCR Negative (Negative); RSV RNA, RT-PCR Negative (Negative); SARS-CoV-2 RNA PCR Negative (Negative)
--- OUTSIDE RECORDS SUMMARY | 2024-09-11 12:02 | XMS_ITS | Encounter Summary ---
Author Organization [facility] Address [address] [place] [id number] Care Team Providers Care Assistant Professor Of Physics Name Role Phone Michael Lyle MD Primary Care Provider [phone] Elvis Delatorre MD Unavailable Unavailab Shaheen Denson MD Unavailable Unavailable Kerri Grove MD Unavailable Encounter Details Date Type Department Care Team (Late st Contact Info) Description 01/23/2016 Abstract [facility] [address] [place] [id number] Elvis Delatorre MD Social History Tobacco Use Types Packs/Day Years Used Date Smoking Tobacco: Every Day Comments Unknown Sex and Gender Information Value Date Recorded Sex Assigned at Not on file Legal Sex Female 10:45 AM CDT Gender Identity Not on file Sexual Orientation Not on file documented as of this encounter Plan of Treatment Not on file documented as of this encounter Visit Diagnoses Not on filedocumented in this encounter Care Teams Assistant Professor Of Physics Relationship Specialty Start Date End Date Michael Lyle MD [address] [place] [address] PCP - General INTERNAL MEDICINE 01/06/16 Elvis Delatorre MD [address] [place] [address] CARDIOVASCULAR DISEASE 01/06/16 06/06/18 Shaheen Yost MD [address] [place] [address] INTERVENTIONAL CARDIOLOGY 06/07/18 06/02/20 Kerri Grove MD [address] [place] [address] Consulting Physician CARDIOVASCULAR DISEASE 05/30/20 documented as of this encounter
--- OUTSIDE RECORDS SUMMARY | 2024-09-11 12:02 | XMS_ITS | Referral Summary ---
Author Organization [facility] Address [address] [place] [address] Care Team Providers Care Parole Supervisor Name Role Phone Michael Lyle MD Primary Care Provider [phone] Michael Lyle MD Unavailable [phone] Allergies No known active allergies Medications atorvastatin (LIPITOR) 80 mg tablet Take 1 tablet (80 mg total) by mouth daily 4 Active Brilinta 90 mg tablet Take 1 tablet (90 mg total) by mouth 2 (two) times a day 4 Active sertraline (ZOLOFT) 100 mg tablet Take 1 tablet (100 mg total) by mouth daily 4 Active acetaminophen 500 mg capsuleIndicati ons:Fever,Pain Take 2 capsules (1,000 mg total) by mouth every 6 (six) hours 4 Active Additional Information Patient not taking.Reported on 04/13/2024 nitroglycerin (NITROSTAT) 0.[address] 1 tablet (0.4 mg total) under the tongue every 5 (five) minutes as needed 2 Active nicotine (NICODERM CQ) [address] 1 patch on the skin daily 30 patch 1 4 Active Active Problems Patient Care Coordination No te Formatting of this note migh t be different from the original. Ms. Rosy Loredo is a 53 year old with a lung nodule. Patient has a history of hyperlipidemia, bilateral carotid artery stenosis, coronary artery disease status post stent placement and COPD. She is currently on Brilinta. On 11/21/2018 the patient underwent a lung cancer screening CT of the chest without contrast which demonstrated right basilar bronchiectasis with some endobronchial debris. There was a 7 mm right lower lobe pulmonary nodule. Patient is a current smoker. Patient presents today for further surgical evaluation. Review of systems: EENT: Positive for nose bleeds, runny nose, snow in his problems and dentures. Psychiatric: Positive for anxiety and depression. Respiratory: Positive for coughing up phlegm and shortness of breath with exertion. All other systems were reviewed and are negative. Problem Noted Date Diagnosed Date Pain of right forearm 08/20/2023 Social History Tobacco Use Types Packs/Day Years Used Date Smoking Tobacco: Every Day Cigarettes 1 35 Smokeless Tobacco: Never Tobacco Cessation:Ready to Q uit: Not Asked; Counseling Given: Not Answered Alcohol Use Standard Drinks/Week Comments Not Currently 0 (1 standard drink = 0.6 oz pur e alcohol) Personal Safety Answer Date Recorded Have you ever been in or are you currently in a harmful physical or emotional relationship or is someone making you feel afraid or unsafe? 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 Not on file Not on fi le Last Filed Vital Signs Vital Sign Reading Time Taken Comments Blood Pressure 126/78 04/13/2024 2:50 PM HEATING ENGINEER Pulse 95 04/13/2024 2:50 PM HEATING ENGINEER Temperature 36.7 C (98.1 F) 08/21/2023 12:50 PM CDT Respiratory Rate 16 08/21/2023 12:50 PM CDT Oxygen Saturation 94% 04/13/2024 2:50 PM HEATING ENGINEER Inhaled Oxygen Concentration - - Weight 89 kg (196 lb 3.2 oz) 04/13/2024 2:50 PM HEATING ENGINEER Height 165.1 cm (5' 5 ) 04/13/2024 2:50 PM HEATING ENGINEER Body Mass Index 32.65 04/13/2024 2:50 PM HEATING ENGINEER Plan of Treatment Not on file Medical Devices Implanted Type Area Wire Brusher Device Identifier Shelf Expiration Date Model / Serial / Lot Cardiac Stent Stent Heart Insurance CLAIMS Member Subscriber Plan / Payer (Ef fective 2017-Present) Name:Rosy Loredo Shu Relation to Subscriber:Spouse Name:ROSY LOREDO Date of :1959 (Home) Address: [address] [place], [place] [id number] Payer ID:[id number] (NAIC) Group ID: Type: Address: [place] [id number] CLAIMS [facility] CLAIMS Advance Directives For more information, please contact: [phone] * Full Code (Latest Code Status on File) Date Activated Date Inactivated Comments 08/20/2023 5:53 AM 08/21/2023 5:13 PM Care Teams Parole Supervisor Relationship Specialty Start Date End Date Michael Lyle MD PCP - General Internal Medicine 11/29/18 Michael Lyle MD [address] [place] [address] Referring Physician Internal Medicine 03/15/19
--- OUTSIDE RECORDS SUMMARY | 2024-09-11 12:02 | XMS_ITS | Clinical Summary ---
Author Organization [facility] Address [address] [place] [address] Care Team Providers Care Printing Specialist Name Role Phone Michael Lyle MD Primary Care Provider [phone] Michael Lyle MD Unavailable [phone] Allergies No known active allergies Medications atorvastatin [...] Diagnosed Date Pain of right forearm 08/20/2023 Surgical History Surgery Date Site/Laterality Comments TONSILLECTOMY HYSTERECTOMY CARDIAC STENT PLACEMENT Medical History Medical History Date Comments Depression Emphysema lung (HCC) HLD (hyperlipidemia) Pneumonia Coronary artery disease Family History Medical History Relation Name Comments Heart failure Father Cancer Mother Heart disease Mother Relation Name Status Comments Father Mother Social History Tobacco Use Types Packs/Day Years [...] on file Legal Sex Female 1:06 AM COUNTY LIBRARY DIRECTOR Gender Identity Not on file Sexual Orientation Not on file 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 Not on file Not on fi Obstetrics History Last Filed Vital Signs Vital Sign Reading Time Taken Comments Blood Pressure 126/78 04/13/2024 2:50 PM COUNTY LIBRARY DIRECTOR Pulse 95 04/13/2024 2:50 PM COUNTY LIBRARY DIRECTOR Temperature 36.7 C (98.1 F) 08/21/2023 12:50 PM CDT Respiratory Rate 16 08/21/2023 12:50 PM CDT Oxygen Saturation 94% 04/13/2024 2:50 PM COUNTY LIBRARY DIRECTOR Inhaled Oxygen Concentration - - Weight 89 kg (196 lb 3.2 oz) 04/13/2024 2:50 PM COUNTY LIBRARY DIRECTOR Height 165.1 cm (5' 5 ) 04/13/2024 2:50 PM COUNTY LIBRARY DIRECTOR Body Mass Index 32.65 04/13/2024 2:50 PM COUNTY LIBRARY DIRECTOR Plan of Treatment Health Maintenance Due Date Last Done Comments Breast Cancer Screening-Mammogram 1965 Colon Cancer Screening-Colonoscopy 1965 Depression Screening 1965 Hepatitis C Screening 1965 Hepatitis B Screening 1983 Regular Well Visit/Exam 18-64 1983 Lung Cancer Screening 2015 Zoster Vaccine (1 of 2) 2015 Pneumococcal vaccine <65 (2 of 2 - PCV) 08/27/2019 0 08/26/2018, 11/04/2010 DTaP/Tdap/Td Vaccine (2 - Td or Tdap) 11/04/2020 Influenza Vaccine (Season Ended) 2025 02/25/20 17, 03/11/2016 Medical Devices Implanted Type Area Industrial Hygiene Manager Device Identifier Shelf Expiration Date Model / Serial / Lot Cardiac Stent Stent Heart Insurance [facility] CLAIMS [facility] CLAIMS [facility] CLAIMS Advance Directives For more information, please contact: [phone] * Full Code (Latest Code Status on File) Date Activated Date Inactivated Comments 08/20/2023 5:53 AM 08/21/2023 5:13 PM Care Teams Printing Specialist Relationship Specialty Start Date End Date Michael Lyle MD PCP - General Internal Medicine 11/29/18 Michael Lyle MD [address] [place] [address] Referring Physician Internal Medicine 03/15/19
--- OUTSIDE RECORDS SUMMARY | 2024-09-11 12:03 | XMS_ITS | Continuity of Care Document ---
Author Name [facility] Organization [facility] Care Team Providers Care Quill Skinner Name Role Phone [facility] Unavailable Unavailable Medications Combined list of outpatient medications from Department of Defense and Veterans Affairs facilities.Medications provided include 1) outpatient medications from the last 15 months, and 2) patient-reported medications. Medication Details Route Status Patient Instructions Prescription Expires Prescription Number Last Dispense Date Ordering Provider Order Date Order Qty Source ATORVASTATI N CALCIUM (atorvastat in calcium), 80 MG, TABLET, ORAL, PHIL PHARMACEU, 500 ea. BOTTLE Cancele d [id number] : 2023 0 Pharmac y Data Transac tion Service Facilit y ATORVASTATI N CALCIUM (atorvastat in calcium), 80 MG, TABLET, ORAL, ZYDUS PHARMACEU, 1000 ea. BOTTLE Active [id number] 4 2023 90 Pharmac y Data Transac tion Service Facilit y ATORVASTATI N CALCIUM (atorvastat in calcium), 80 MG, TABLET, ORAL, ZYDUS PHARMACEU, 1000 ea. BOTTLE Active [id number] 4 2023 14 Pharmac y Data Transac tion Service Facilit y ATORVASTATI N CALCIUM (atorvastat in calcium), 80 MG, TABLET, ORAL, ZYDUS PHARMACEU, 1000 ea. BOTTLE Active [id number] 4 2023 30 Pharmac y Data Transac tion Service Facilit y BRILINTA (TICAGRELOR ), 90 MG, TABLET, ORAL, ASTRAZENECA , 60 ea. BOTTLE Active [id number] 4 2023 180 Pharmac y Data Transac tion Service Facilit y BUPROPION XL (bupropion HCl), 300 MG, TAB ER 24H, ORAL, PHIL PHARMACEU, 500 ea. BOTTLE Cancele d [id number] : 2023 0 Pharmac y Data Transac tion Service Facilit y CARVEDILOL (carvedilol ), 3.125 MG, TABLET, ORAL, [employer] 500 ea. BOTTLE Cancele d [id number] : 2023 0 Pharmac y Data Transac tion Service Facilit y PREDNISONE (prednisone ), 10 MG, TABLET, ORAL, NOVITIUM/AN I PH, 1000 ea. BOTTLE Active [id number] 4 2023 13 Pharmac y Data Transac tion Service Facilit y SERTRALINE HCL (sertraline HCl), 100 MG, TABLET, ORAL, [employer] 500 ea. BOTTLE Active [id number] 4 2023 90 Pharmac y Data Transac tion Service Facilit y SERTRALINE HCL (sertraline HCl), 100 MG, TABLET, ORAL, [employer] 500 ea. BOTTLE Active [id number] 4 2023 14 Pharmac y Data Transac tion Service Facilit y SERTRALINE HCL (sertraline HCl), 100 MG, TABLET, ORAL, [employer] 500 ea. BOTTLE Active [id number] 4 2023 30 Pharmac y Data Transac tion Service Facilit y SERTRALINE HCL (SERTRALINE HCL), 100 MG, TABLET, ORAL, EXELAN PHARMACE, 500 ea. BOTTLE Cancele d [id number] 4 [id number] : 2023 0 Pharmac y Data Transac tion Service Facilit y TRAMADOL HCL (TRAMADOL HCL), 50MG, TABLET, ORAL, [employer], 500 ea. BOTTLE Active [id number] 4 2023 20 Pharmac y Data Transac tion Service Facilit y Social History Combined list of available smoking, tobacco, and other social history from Department of Defense and Veterans Affairs facilities. Social History Type Response Date Comment [facility] e This section is an empty social history section. DoD
--- OUTSIDE RECORDS SUMMARY | 2024-09-11 12:03 | XMS_ITS | Encounter Summary ---
Author Organization [facility] Address [address] [place] [address] Care Team Providers Care Railroad Crossing Protection Maintainer Name Role Phone Michael Lyle MD Primary Care Provider [phone] Kerri Grove MD Unavailable Encounter Details Date Type Department Care Team (Late st Contact Info) Description 04/20/2022 Hospital Follow-up Call [facility] [address] [place] [address] Desirae Palm RN Social History Tobacco Use Types Packs/Day Years Used Date Smoking Tobacco: Every Day Smokeless Tobacco: Never Alcohol Use Standard Drinks/Week Comments Never 0 (1 standard drink = 0.6 oz pur e alcohol) AUDIT-C Answer Date Recorded Q1: How often do you have a drink containing alc ohol? Never 06/03/2020 Average Number of Drinks Not on file 021 Frequency of Binge Drinking Not on file 05/24 Comments Unknown Sex and Gender Information Value Date Recorded Sex Assigned at Not on file Legal Sex Female 10:45 AM CDT Gender Identity Not on file Sexual Orientation Not on file COVID-19 Exposure Response Date Recorded In the last 10 days, have yo u been in contact with someone who was confirmed or suspected to have Coronavirus/COVID-19? No / Unsure 04/14/2022 11:59 PM DIRECTOR OF RETAIL MARKETING documented as of this encounter Functional Status * RETIRED Are you deaf or do you have serious difficulty hearing Answer Date of Assessment Author Status No 04/15/2022 5:29 PM DIRECTOR OF RETAIL MARKETING Activ e * RETIRED Are you blind or do you have serious difficulty seeing, even when wearing glasses? Answer Date of Assessment Author Status No 04/15/2022 5:29 PM DIRECTOR OF RETAIL MARKETING Activ e * Do you have serious difficulty walking or climbing stairs? Answer Date of Assessment Author Status No 04/15/2022 5:29 PM Violeta Piper RN Active * Do you have difficulty dressing or bathing? Answer Date of Assessment Author Status No 04/15/2022 5:29 PM Violeta Piper RN Active * Because of a physical, mental, or emotional condition, do you have difficulty doing errands alone such as visiting a doctor's office or shopping? Answer Date of Assessment Author Status No 04/15/2022 5:29 PM Violeta Piper RN Active documented as of this encounter Mental Status * Because of a physical, mental, or emotional condition, do you have serious difficulty concentrating, remembering, or making decisions? Answer Entry Date Author Status No 04/15/2022 5:29 PM Violeta Piper RN Active documented in this encounter Plan of Treatment Not on file documented as of this encounter Visit Diagnoses Not on filedocumented in this encounter Care Teams Railroad Crossing Protection Maintainer Relationship Specialty Start Date End Date Michael Lyle MD [address] [place] [address] PCP - General INTERNAL MEDICINE 01/06/16 Kerri Grove MD [address] [place] [address] Consulting Physician CARDIOVASCULAR DISEASE 05/30/20 documented as of this encounter
--- OUTSIDE RECORDS SUMMARY | 2024-09-11 12:03 | XMS_ITS | Clinical Summary ---
Author Organization [facility] Address [address] [place] [address] Care Team Providers Care Software Release Engineer Name Role Phone Michael Lyle MD Primary Care Provider [phone] Kerri Grove MD Unavailable Allergies No known active allergies Medications sertraline 100 MG tablet Take 100 mg by mouth daily. Active fluticasone propionate 220 MCG/ACT inhaler Inhale 1 puff into the lungs 2 (two) times daily. Active melatonin 5 MG tablet Take 3 mg by mouth daily. Active aspirin 81 MG chewable tablet Chew 81 mg by mouth daily. Active ticagrelor 90 MG tablet Take 1 tablet (90 mg total) by mouth 2 (two) times daily. 180 tablet 3 01/29/2017 Active atorvastatin 80 MG tablet Take 80 mg by mouth nightly at bedtime. 05/03/2020 Active PROAIR HFA 108 (90 Base) MCG/ACT inhaler 1 puff every 6 (six) hours as needed. 07/29/2021 Active Calcium Citrate-Vitamin D 200-3.125 MG-MCG Tab Take by mouth daily. Active carvedilol (COREG) 3.125 MG tablet Take 3.125 mg by mouth 2 (two) times daily. 04/13/2022 Active vitamin B-12 (CYANOCOBALAMIN ) 500 MCG tablet Take 500 mcg by mouth daily. Active nitroglycerin (NITROSTAT) 0.[address] 1 tablet (0.4 mg total) under the tongue every 5 (five) minutes as needed for Chest Pain (for up to 3 doses for any given episode of CP). 10 tablet 04/15/2022 Active Active Problems Problem Noted Date Diagnosed Date Unstable angina ([facility]/HCC) 04/14/2022 Abnormal cardiovascular stress test 03/06/2016 Hyperlipidemia COPD (chronic obstructive pu lmonary disease) ([facility]) CAD (coronary artery disease) Overview (03/11/2016): S/P PCI to mid LAD with JEREMY, February 2016 Family History Medical History Relation Comments Heart Attack Brother Heart Attack Father Stent Cardiac Father Stroke Father Heart Attack Mother Open Heart Mother Heart Attack Paternal Grandfather Stent Cardiac Paternal Grandfather Heart Attack Paternal Grandmother Stent Cardiac Paternal Grandmother Relation Status Comments Brother Father Mother Paternal Grandfather Paternal Grandmother Social History Tobacco Use Types Packs/Day Years [...] on file Sexual Orientation Not on file Last Filed Vital Signs Vital Sign Reading Time Taken Comments Blood Pressure 122/67 04/15/2022 4:47 PM ELECTION SUPERVISOR Pulse 58 04/15/2022 4:47 PM ELECTION SUPERVISOR Temperature 36.5 C (97.7 F) 04/15/2022 8:00 AM ELECTION SUPERVISOR Respiratory Rate 20 04/15/2022 8:00 AM ELECTION SUPERVISOR Oxygen Saturation 97% 04/15/2022 4:47 PM ELECTION SUPERVISOR Inhaled Oxygen Concentration - - Weight 83.5 kg (184 lb) 04/15/2022 12:24 PM ELECTION SUPERVISOR Height 165.1 cm (5' 5 ) 04/15/2022 12:24 PM ELECTION SUPERVISOR Body Mass Index 30.62 04/15/2022 12:24 PM ELECTION SUPERVISOR Plan of Treatment Health Maintenance Due Date Last Done Comments ASCVD Statin 1965 Colorectal Cancer Screening Colonoscopy (10 Years) 1965 Annual Physical 02/06/1968 Hepatitis C 1983 DTaP, Tdap and Td Vaccines ( 1 - Tdap) 02/06/1984 Pneumococcal Vaccine: 50+ Years (1 of 2 - PCV) 02/06/1984 Mammogram Screening 2005 Zoster Vaccines (1 of 2) 2015 ASCVD LDL 04/15/2023 04/15/2022, 04/30/2020 COVID-19 Vaccine (1 - 2023-2 5 season) 2024 Meningococcal B Vaccine Aged Out No l onger eligible based on patient's age to complete this topic Meningococcal Vaccine Aged Out No camryn cisco eligible based on patient's age to complete this topic RSV Immunizations Under 20 Months Aged Out No longer eligible b ased on patient's age to complete this topic Procedures Procedure Name Priority Date/Time Associated Diagnosis Comments LIPID PANEL Routine 04/15/2022 6:20 AM ELECTION SUPERVISOR from Last 3 Months or Most Recently Relevant to Health Maintenance Results * (ABNORMAL) LIPID PANEL (04/15/2022 6:20 AM ELECTION SUPERVISOR) CHOLESTEROL 205 MG/DL 04/15/2022 7:26 AM [facility] Comment:BORDERLINE HIGH: 200 -239 TRIGLYCERIDES 227 MG/DL 04/15/2022 7:26 AM [facility] Comment:200-499 HIGH HDL 34(L) >49 MG/DL 04/15/2022 7:26 AM [facility] LDL (CALCULATED) 126 MG/DL 04/15/20 7:26 AM [facility] Comment:100-129 NEAR OR ABOV E OPTIMAL VLDL CALCULATION 45 MG/DL 04/15/20 7:26 AM [facility] Comment:REFERENCE RANGE NOT ESTABLISHED CHOL/HDL RATIO 6.0 04/15/2022 7:26 AM [facility] Comment:REFERENCE RANGE NOT ESTABLISHED LDL/HDL 3.7 04/15/2022 7:26 AM [facility] Comment:REFERENCE RANGE NOT ESTABLISHED NON HDL CHOLESTEROL 171 MG/DL 04/15/2022 7:26 AM [facility] Comment:REFERENCE RANGE NOT ESTABLISHED 04/15/2022 6:20 AM ELECTION SUPERVISOR Riley Bowles MD LABORATORY Final Result [facility] [address] [place] [address], [id number] from Last 3 Months or Most Recently Relevant to Health Maintenance Insurance Advance Directives * Full Code (Latest Code Status on File) Date Activated Date Inactivated Comments 04/15/2022 12:00 AM 04/15/2022 8:37 PM Care Teams Software Release Engineer Relationship Specialty Start Date End Date Michael Lyle MD [address] [place] [address] PCP - General INTERNAL MEDICINE 01/06/16 Kerri Grove MD [address] [place] [address] Consulting Physician CARDIOVASCULAR DISEASE 05/30/20
== END 2024-09-11 10:34 | disposition home or self-care (01) ==
LOC: CHSLAB 10:36
PROVIDERS: PCP Internal Medicine; Visit Provider Internal Medicine
DX: J44.1 Chronic obstructive pulmonary disease with (acute) exacerbation (principal)
CPT/HCPCS: 36415; 71046; 80053; 85025; 87637; 87651

== ENCOUNTER 2024-11-08 08:34 | Outpatient (CLI) | payer OTHER, SELFPAY ==
[2024-11-08 08:47] LABS: Add Urine Microscopic? YES; Appearance Urine Clear (Clear); Basophils Absolute Auto 0.05 K/mm3 (0.00-0.10); Basophils Percent Auto 0.6 % (0.0-1.0); Bilirubin Urine 1+ (Negative); Blood Urine Negative (Negative); Color Urine Yellow (Yellow); Eosinophils Absolute Auto 0.15 K/mm3 (0.02-0.50); Eosinophils Percent Auto 1.8 % (1.0-6.0); Glucose Urine UA Negative (Negative); Hematocrit 44.2 % (35.0-49.0); Hemoglobin 14.3 g/dL (12.0-15.0); Immature Granulocyte Absolute 0.03 K/mm3 (0.00-0.00); Immature Granulocyte Percent A 0.4 % (0.0-0.0); Ketones Urine Trace (Negative); Leukocyte Esterase Ur Trace LEU/UL (Negative); Lymphocytes Percent Auto 38.1 % (18.0-42.0); Mean Corpuscular HGB Conc 32.4 g/dL (32-36); Mean Corpuscular Hemoglobin 29.4 pg (27.0-31.0); Mean Corpuscular Volume 90.9 fL (78.0-102.0); Mean Platelet Volume 9.2 fl (9.2-11.8); Monocytes Absolute Auto 0.58 K/mm3 (0.10-0.90); Monocytes Percent Auto 7.1 % (2.0-11.0); Neutrophils Absolute Auto 4.22 K/mm3 (1.70-7.20); Nitrate Urine Negative (Negative); Platelet Count Result 225 K/mm3 (150-420); Protein Urine Negative (Negative); Red Blood Count 4.86 M/mm3 (4.20-5.40); Red Cell Distribution Width 14.4 % (11.6-14.4); Specific Grav Ur 1.025 (1.010-1.020); White Blood Count 8.1 K/mm3 (4.8-10.8)
[2024-11-08 08:52] LABS: Bacteria Urine 1+ /hpf; RBC Urine 0-2 /hpf (0-2); Squamous Epithelial Cell Urine Many /hpf (Few); WBC Urine 0-3 /hpf (0-3)
--- OUTSIDE RECORDS SUMMARY | 2024-11-08 08:55 | XMS_ITS | Continuity of Care Document ---
Author Name [facility] Organization [facility] Care Team Providers Care Dragger Name Role Phone [facility] Unavailable Unavailable Medications Combined list of outpatient [...] PHIL PHARMACEU, 500 ea. BOTTLE Cancele d [id number] : 2023 0 Pharmac y Data Transac tion Service Facilit y ATORVASTATI N CALCIUM (atorvastat in calcium), 80 MG, TABLET, ORAL, ZYDUS PHARMACEU, 1000 ea. BOTTLE Active [id number] 4 2023 90 Pharmac y Data Transac tion Service Facilit y ATORVASTATI N CALCIUM (atorvastat in calcium), 80 MG, TABLET, ORAL, [employer] PHARMACEU, 1000 ea. BOTTLE Active [id number] 2023 14 Pharmac y Data Transac tion Service Facilit y ATORVASTATI N CALCIUM (atorvastat in calcium), 80 MG, TABLET, ORAL, ZYDUS PHARMACEU, 1000 ea. BOTTLE Active [id number] 2023 30 Pharmac y Data Transac tion Service Facilit y BRILINTA (TICAGRELOR ), 90 MG, TABLET, ORAL, ASTRAZENECA , 60 ea. BOTTLE Active [id number] 4 2023 180 Pharmac y Data Transac tion Service Facilit y BUPROPION XL (bupropion HCl), 300 MG, TAB ER 24H, ORAL, PHIL PHARMACEU, 500 ea. BOTTLE Cancele d [id number] : 2023 0 Pharmac y Data Transac tion Service Facilit y CARVEDILOL (carvedilol ), 3.125 MG, TABLET, ORAL, [employer] 500 ea. BOTTLE Cancele d [id number] : 2023 0 Pharmac y Data Transac tion Service Facilit y PREDNISONE (prednisone ), 10 MG, TABLET, ORAL, NOVITIUM/AN I PH, 1000 ea. BOTTLE Active [id number] 2023 13 Pharmac y Data Transac tion Service Facilit y SERTRALINE HCL (sertraline HCl), 100 MG, TABLET, ORAL, [employer] 500 ea. BOTTLE Active [id number] 2023 90 Pharmac y Data Transac tion Service Facilit y SERTRALINE HCL (sertraline HCl), 100 MG, TABLET, ORAL, [employer] 500 ea. BOTTLE Active [id number] 4 2023 14 Pharmac y Data Transac tion Service Facilit y SERTRALINE HCL (sertraline HCl), 100 MG, TABLET, ORAL, [employer] 500 ea. BOTTLE Active [id number] 2023 30 Pharmac y Data Transac tion Service Facilit y SERTRALINE HCL (SERTRALINE HCL), 100 MG, TABLET, ORAL, EXELAN PHARMACE, 500 ea. BOTTLE Cancele d [id number] : 2023 0 Pharmac y Data Transac tion Service Facilit y TRAMADOL HCL (TRAMADOL HCL), 50MG, TABLET, ORAL, [employer], 500 ea. BOTTLE Active [id number] 4 2023 20 Pharmac y Data Transac tion Service Facilit y Social History Combined list of available smoking, tobacco, and other social history from Department of Defense and Veterans Affairs facilities. Social History Type Response Date Comment [facility] e This section is an empty social history section. DoD
--- OUTSIDE RECORDS SUMMARY | 2024-11-08 08:55 | XMS_ITS | Referral Summary ---
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 Not on file Not on fi le Last Filed Vital Signs Vital Sign Reading Time Taken Comments Blood Pressure 126/78 04/13/2024 2:50 PM WAD PRINTING MACHINE OPERATOR Pulse 95 04/13/2024 2:50 PM WAD PRINTING MACHINE OPERATOR Temperature 36.7 C (98.1 F) 08/21/2023 12:50 PM CDT Respiratory Rate 16 08/21/2023 12:50 PM CDT Oxygen Saturation 94% 04/13/2024 2:50 PM WAD PRINTING MACHINE OPERATOR Inhaled Oxygen Concentration - - Weight 89 kg (196 lb 3.2 oz) 04/13/2024 2:50 PM WAD PRINTING MACHINE OPERATOR Height 165.1 cm (5' 5) 04/13/2024 2:50 PM WAD PRINTING MACHINE OPERATOR Body Mass Index 32.65 04/13/2024 2:50 PM WAD PRINTING MACHINE OPERATOR Plan of Treatment Not on file Medical Devices Implanted Type Area Specimen Boss Device Identifier Shelf Expiration Date Model / Serial / Lot Cardiac Stent Stent Heart Insurance CLAIMS Member Subscriber Plan / Payer (Ef fective 2017-Present) Name:Rosy Loredo Shu Relation to Subscriber:Spouse Name:ROSY LOREDO Date of :1959 (Home) Address: [address] [place], [place] [id number] Payer ID:[id number] (NAIC) Group ID: Type: Address: [place] [id number] CLAIMS [facility] CLAIMS Advance Directives For more information, please contact: [phone] * Full Code (Latest Code Status on File) Date Activated Date Inactivated Comments 08/20/2023 5:53 AM 08/21/2023 5:13 PM Care Teams Pattern Puncher Relationship Specialty Start Date End Date Michael Lyle MD PCP - General Internal Medicine 11/29/18 Michael Lyle MD [address] [place] [address] Referring Physician Internal Medicine 03/15/19
--- OUTSIDE RECORDS SUMMARY | 2024-11-08 08:55 | XMS_ITS | Clinical Summary ---
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 Not on file Not on fi Obstetrics History Last Filed Vital Signs Vital Sign Reading Time Taken Comments Blood Pressure 126/78 04/13/2024 2:50 PM OPTICAL INSTRUMENT SPECIALIST Pulse 95 04/13/2024 2:50 PM OPTICAL INSTRUMENT SPECIALIST Temperature 36.7 C (98.1 F) 08/21/2023 12:50 PM CDT Respiratory Rate 16 08/21/2023 12:50 PM CDT Oxygen Saturation 94% 04/13/2024 2:50 PM OPTICAL INSTRUMENT SPECIALIST Inhaled Oxygen Concentration - - Weight 89 kg (196 lb 3.2 oz) 04/13/2024 2:50 PM OPTICAL INSTRUMENT SPECIALIST Height 165.1 cm (5' 5) 04/13/2024 2:50 PM OPTICAL INSTRUMENT SPECIALIST Body Mass Index 32.65 04/13/2024 2:50 PM OPTICAL INSTRUMENT SPECIALIST Plan of Treatment Health Maintenance Due Date [...] 17, 03/11/2016 Medical Devices Implanted Type 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 Device Identifier Shelf Expiration Date Model / Serial / Lot Cardiac Stent Stent Heart Insurance [employer] CLAIMS [employer] CLAIMS [employer] Advance Directives For more information, please contact: [phone] * Full Code (Latest Code Status on File) Date Activated Date Inactivated Comments 08/20/2023 5:53 AM 08/21/2023 5:13 PM Care Teams Bilingual Instructor Relationship Specialty Start Date End Date Michael Lyle MD PCP - General Internal Medicine 11/29/18 Michael Lyle MD [address] [place] [address] Referring Physician Internal Medicine 03/15/19
[2024-11-08 08:57] LABS: Hemoglobin A1C 5.4 % (<5.7)
[2024-11-08 09:30] LABS: Alanine Aminotransferase 26 U/L (6-35); Albumin Level 4.2 g/dL (3.5-5.1); Alkaline Phosphatase 96 U/L (38-126); Anion Gap 4 mmol/L (4-12); Aspartate Amino Transferase 28 U/L (14-36); Bilirubin,Total 0.6 mg/dL (0.2-1.3); Blood Urea Nitrogen 5 mg/dL (7-17); Calcium 9.3 mg/dL (8.4-10.2); Carbon Dioxide 26 mmol/L (22-30); Chloride 112 mmol/L (98-107); Cholesterol 214 mg/dL (0-200); Creatine Kinase 42 U/L (30-135); Estimated Glomerular Filt Rate > 60; Glucose 96 mg/dL (65-110); HDL Direct 31 mg/dL; LDL Cholesterol Calculated 122 mg/dL (<130); Osmolality Calculated 291 mOsm/kg (285-295); Potassium 3.9 mmol/L (3.4-5.0); Sodium 142 mmol/L (137-145); Triglycerides 303 mg/dL (<150)
[2024-11-08 09:46] LABS: Vitamin D 25 Hydroxy 14.6 ng/mL
== END 2024-11-08 08:35 | disposition home or self-care (01) ==
LOC: CHSLAB 08:36
PROVIDERS: PCP Internal Medicine; Visit Provider Internal Medicine
DX: E78.2 Mixed hyperlipidemia (principal); E55.9 Vitamin D deficiency, unspecified; N39.0 Urinary tract infection, site not specified; R73.01 Impaired fasting glucose
CPT/HCPCS: 36415; 80053; 80061; 81001; 82306; 82550; 83036; 85025